=== PATIENT | male | born 1960 | race Caucasian/White ===

== ENCOUNTER 2020-11-12 18:32 | Observation (INO) | payer MEDICARE ==
[~2020-11-12] VITALS: Ht 180.3 cm; Wt 92.2 kg
[~2020-11-12 18:32] MED LIST: ALBU8.5H8 INH; ASPI-963 PO; ASPI325T20 PO; ATOR10TA9 PO; BENZ-17 PO; CHOL100012 PO; CYCL10TA2 PO; DIAZ5TAB4 PO; FLUN25SP NS; HYDR-3237 PO; HYDR-3248 PO; KETO15CR17 TP; LORA-59 PO; METO25TA35 PO; MULT-297 PO; OMEG1CAP23 PO; OMEG1CAP34 PO; OXYC1TAB14 PO; SIMV40TA20 PO; UBID10CA7 PO
[2020-11-12] MEDS ORDERED: MORPHINE SULFATE 4 MG/ML, 1ML ONE ×2 (20:23→21:46)
[2020-11-12] MEDS ORDERED: ONDANSETRON 2MG/ML, 2ML ONE (20:23)
[2020-11-12] MEDS ORDERED: SODIUM CHLORIDE FLUSH 10ML SYR IVF ONE (20:30)
[2020-11-12] MEDS ORDERED: ONDANSETRON 2MG/ML, 2ML IVPush ONE (20:30)
[2020-11-12] MEDS: MORPHINE SULFATE 4 MG/ML, 1ML IVPush PRN ×2 (20:32→21:47)
[2020-11-12 20:47] LABS: BASOPHILS % (AUTO) 1 % (0-1); EOSINOPHILS % (AUTO) 1 % (1-7); LYMPHOCYTES % (AUTO) 19 % (22-44); MEAN CORPUSCULAR HEMOGLOBIN 33.1 pg (27.5-34.5); MEAN CORPUSCULAR HGB CONC 34.3 g/dL (33.2-36.2); MEAN PLATELET VOLUME 7.8 fL (7.4-10.4); MONOCYTES % (AUTO) 8 % (2-9); NEUTROPHILS % (AUTO) 71 % (42-75); PLATELET COUNT 246 x10^3/uL (130-400); RED BLOOD COUNT 4.91 x10^6/uL (4.38-5.82); RED CELL DISTRIBUTION WIDTH 13.4 % (9.4-14.8)
--- NOTE | 2020-11-12 20:47 | NUR ---
PIV PLACED, LABS DRAWN AND COLLECTED BY ELECTRONIC TESTER. MEDS ADMIN PER NOV. PT CONNECTED TO PULSE OX.
[2020-11-12 20:58] LABS: ALANINE AMINOTRANSFERASE 42 U/L (12-78); ALBUMIN 4.2 g/dL (3.4-5.0); ANION GAP 8 mmol/L (5-15); CHLORIDE 108 mmol/L (98-107); CREATININE 1.01 mg/dL (0.7-1.3)
[2020-11-12 20:59] LABS: MD NO
[2020-11-12 21:00] LABS: ALKALINE PHOSPHATASE 68 U/L (45-117); BILIRUBIN,TOTAL 0.4 mg/dL (0.2-1.0); TOTAL PROTEIN 7.8 g/dL (6.4-8.2)
[2020-11-12 21:01] LABS: INTERNATIONAL NORMALIZED RATIO 0.98 (0.93-1.1); PROTHROMBIN TIME 10.5 Seconds (9.6-11.5)
--- NOTE | 2020-11-12 21:15 | NUR ---
PT GOING TO CT
[2020-11-12] MEDS ORDERED: OMNIPAQUE 350 MG/ML, 100ML BOTTLE ONE (21:24)
--- NOTE | 2020-11-12 21:49 | NUR ---
MEDS ADMIN PER NOV.
--- NOTE | 2020-11-12 21:59 | NUR ---
MD AT BEDSIDE TO UPDATE PT ON POC.
[2020-11-12] MEDS ORDERED: SODIUM CHLORIDE FLUSH 10ML SYR IVF PRN (22:30)
--- NOTE | 2020-11-12 22:59 | NUR ---
REPORT RECIEVED FROM DAMARIS TONY
--- NOTE | 2020-11-12 23:08 | NUR ---
ADMITTING MD AT BEDSIDE
--- NOTE | 2020-11-12 23:26 | NUR ---
REPORT GIVEN TO BARB TONY
[2020-11-12] MEDS ORDERED: IBUPROFEN 600 MG TABLET PO PRN (23:30)
[2020-11-12] MEDS ORDERED: POLYETHYLENE GLYCOL 17 GM PACKET PO PRN (23:30)
[2020-11-12] MEDS ORDERED: LABETALOL 5MG/ML, 20ML IVPush PRN (23:30)
[2020-11-12] MEDS ORDERED: ENALAPRILAT 1.25 MG/ML, 2ML IVPush PRN (23:30)
[2020-11-12] MEDS ORDERED: ACETAMINOPHEN 325 MG TABLET PO PRN (23:30)
[2020-11-12] MEDS ORDERED: ALBUTEROL HFA 90 MCG/SPRAY INH PRN (23:30)
[2020-11-12] MEDS: OXYcodone IR 5MG TABLET PO PRN (23:56)
[2020-11-13 00:16] VITALS: BP 106/71
[2020-11-13] MEDS: morphine SULFATE 10 MG/ML, 1ML IVPush PRN ×2 (01:09→05:15)
[2020-11-13 07:44] VITALS: BP 132/78
[2020-11-13] MEDS: OXYcodone IR 5MG TABLET PO PRN ×2 (07:48→13:17)
[2020-11-13] MEDS ORDERED: LORATADINE 10 MG TABLET PO SCH (09:00)
[2020-11-13] MEDS ORDERED: METOPROLOL TARTRATE 25 MG TAB PO SCH (09:00)
[2020-11-13] MEDS ORDERED: HYDR-3248 PO (12:04)
[2020-11-13 13:45] VITALS: BP 105/69
[2020-11-13] MEDS ORDERED: ATORVASTATIN 10 MG TABLET PO SCH (21:00)
== END 2020-11-13 16:50 | disposition home or self-care (01) ==
LOC: ED 23:40 → INTOOBSV 23:51 → EDIP 23:51 → 3N 23:52
PROVIDERS: ADMIT Family Medicine; ATTEND Family Medicine
DX: S22.42XA Multiple fractures of ribs, left side, initial encounter for closed fracture (principal); I10 Essential (primary) hypertension; J44.9 Chronic obstructive pulmonary disease, unspecified; R09.02 Hypoxemia; I25.10 Atherosclerotic heart disease of native coronary artery without angina pectoris; I25.2 Old myocardial infarction; F17.200 Nicotine dependence, unspecified, uncomplicated; F12.10 Cannabis abuse, uncomplicated; V89.2XXA Person injured in unspecified motor-vehicle accident, traffic, initial encounter; Y92.410 Unspecified street and highway as the place of occurrence of the external cause; Y93.89 Activity, other specified; Z79.899 Other long term (current) drug therapy; Z95.5 Presence of coronary angioplasty implant and graft; Z98.1 Arthrodesis status
CPT/HCPCS: 36415; 71045; 71260; 74177; 80053; 85025; 85610; 85730; 96374; 96375; 96376; 99285; G0378; J2270; J2405; Q9967

== ENCOUNTER 2020-11-30 13:12 | Emergency (ER) | payer MEDICARE ==
[~2020-11-30] VITALS: Ht 180.3 cm; Wt 90.3 kg
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
--- NOTE | 2020-11-30 14:45 | NUR ---
Ambulated to the restroom with a steady gait. Provided with blanket.
[2020-11-30] MEDS ORDERED: KETOROLAC 30 MG/1 ML IM ONE (15:30)
[2020-11-30] MEDS ORDERED: OXYcodone/APAP 5/325MG TABLET PO ONE (15:30)
[2020-11-30] MEDS ORDERED: KETOROLAC 30 MG/1 ML ONE (15:32)
[2020-11-30] MEDS ORDERED: OXYcodone/APAP 5/325MG TABLET ONE (15:32)
--- NOTE | 2020-11-30 15:37 | NUR ---
Medicated per eMAR. VSS. No other needs.
[2020-11-30 16:35] VITALS: BP 129/87
--- NOTE | 2020-11-30 16:35 | NUR ---
Patient/Caregiver given discharge instructions and they have confirmed that they understand the instructions. Patient ambulatory with steady gait.
== END 2020-11-30 16:45 | disposition home or self-care (01) ==
LOC: ED 13:14
DX: S22.42XA Multiple fractures of ribs, left side, initial encounter for closed fracture (principal); R06.02 Shortness of breath; R94.31 Abnormal electrocardiogram [ECG] [EKG]; I25.2 Old myocardial infarction; J44.9 Chronic obstructive pulmonary disease, unspecified; F17.200 Nicotine dependence, unspecified, uncomplicated; X58.XXXA Exposure to other specified factors, initial encounter; Y93.89 Activity, other specified; Y92.89 Other specified places as the place of occurrence of the external cause; Y99.8 Other external cause status
CPT/HCPCS: 71045; 93005; 96372; 99283; J1885